=== PATIENT | female | born 1950 | race Caucasian/White ===

== ENCOUNTER 2016-12-14 12:08 | Emergency (ER) | payer BC, OTHER ==
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
[2016-12-14] MEDS ORDERED: IBUPROFEN 800 MG TABLET PO ONE (12:54)
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
[2016-12-14 16:46] VITALS: BP 148/82
== END 2016-12-14 16:46 | disposition home or self-care (01) ==
LOC: ER 12:08
DX: S46.911A Strain of unspecified muscle, fascia and tendon at shoulder and upper arm level, right arm, initial encounter (principal); M25.511 Pain in right shoulder; V87.7XXA Person injured in collision between other specified motor vehicles (traffic), initial encounter
CPT/HCPCS: 99284